=== PATIENT | female | born 1960 | race Caucasian/White ===

== ENCOUNTER 2017-06-21 19:18 | Inpatient (IN) | payer MEDICARE ==
[~2017-06-21] VITALS: Ht 162.6 cm; Wt 90.7 kg
--- NOTE | ~2017-06-21 | EKG ---
PATIENT: ELYSE VIEIRA UNIT #: [id number] Ventricular Rate: 71 BPM Atrial Rate: 71 BPM P-R Interval: 172 ms QRS Duration: 90 ms Q-T Interval: 418 ms QTC Calculation(Bezet): 454 ms P Berlin: 46 degrees Calculated R Berlin: 7 degrees Calculated T Berlin: 43 degrees Diagnosis Line: Normal sinus rhythm Diagnosis Line: Normal ECG Diagnosis Line: When compared with ECG of 03-NOV-2016 05:27, Diagnosis Line: No significant change was found Diagnosis Line: Confirmed by NATE WELLS MD ([id number]) on Diagnosis Line: 06/23/2017 10:49:28 PM INTERPRETING MD: SAE
--- NOTE | ~2017-06-21 | CR157 ---
[facility] A Service of [facility] RADIOLOGY TEXT RESULTS PATIENT: ELYSE VIEIRA LOCATION: [facility] : 58 UNIT #: [id number] AGE: [address]: Ann Kurtz MD SEX: F ORDER DR: [id number] [facility] [address]. [place], [place] [address] [id number] I MR#: [id number] Acc #: [id number] NAME: ELYSE VIEIRA. : 1960 SEX: F STUDY DATE/TIME: 06/21/2017 19:55 UNIT: [facility] ROOM: 219 STUDY DESCRIPTION: CR Humerus Min 2 View Rt Attending Physician: Ann Kurtz M.D. Ordering Physician: Jarrett Leon D.O. Primary Care Physician: Maria Antonia Vargas M.D. MEDICAL IMAGING REPORT This report is preliminary unless electronic signature is present EXAM Humerus right, two views , HISTORY Right arm and shoulder pain with movement. Patient fell today. COMMENT Two views of the right humerus are reviewed. There is a spiral fracture of the mid shaft of the right humerus with angulation and displacements. There is apparently apex dorsal angulation and at least 2 to 3 cm displacement. There is soft tissue swelling. Please correlate for clinical evidence of neurovascular injury. IMPRESSION Spiral fracture midshaft of the right humerus with angulation and displacement. Please correlate for any clinical concern for neurovascular injury. Dictated by... Leida Duvall M.D. THIS IS AN ELECTRONICALLY VERIFIED REPORT Leida Duvall M.D. at 06/22/2017 2:12 PM SANDHYA/jae TD: 06/22/2017 08:34 JOB #: [id number] MEDICAL IMAGING REPORT [facility] A Service [facility] RADIOLOGY TEXT RESULTS PATIENT: ELYSE VIEIRA LOCATION: [facility] : 58 UNIT #: [id number] AGE: [address]: Ann Kurtz MD SEX: F ORDER DR: Page 1 of 1 COPY
--- NOTE | ~2017-06-21 | CT71 ---
[facility] A Service of [facility] RADIOLOGY TEXT RESULTS PATIENT: ELYSE VIEIRA LOCATION: [facility] - : 58 UNIT #: [id number] AGE: [address]: Ann Kurtz MD SEX: F ORDER DR: [id number] [facility] [address] [place] [facility]. [place], [place] [address] [id number] I MR#: [id number] Acc #: [id number] NAME: ELYSE VIEIRA. : 1960 SEX: F STUDY DATE/TIME: 06/21/2017 20:39 UNIT: C2A ROOM: 219 STUDY DESCRIPTION: CT Head Wo Contrast Attending Physician: Ann Kurtz M.D. Ordering Physician: Jarrett Leon D.O. Primary Care Physician: Maria Antonia Vargas M.D. MEDICAL IMAGING REPORT This report is preliminary unless electronic signature is present EXAM Head CT without HISTORY Trauma, fell today, hit head, forehead pain, neck pain. History of hypertension, stroke, COPD, diabetes and seizures. COMMENT Routine noncontrast head CT is reviewed. Comparison is from 11/03/2016. This CT examination was performed with one or more of the following radiation dose reduction techniques: automatic exposure control, adjustment of mA and/or kV according to patient size, and iterative reconstruction. There is no displaced calvarial fracture. Partly seen is a mucous retention cyst or polyp in the left maxillary sinus. The mastoid air cells are clear. Incidental osteoma in the frontal sinuses. Vascular calcifications at the base of the brain. There is no evidence for acute intracranial hemorrhage or extraaxial fluid collection. There is mild generalized atrophy and there is mild white matter low-attenuation in the periventricular white matter which is nonspecific but likely due to small vessel disease. Basilar cisterns are patent. There is no intracranial mass effect. No acute cortical infarct is suspected but if there is clinical concern for acute CVA followup imaging is recommended preferably with an MRI. IMPRESSION 1. No evidence for acute intracranial injury. 2. Mild probable sequelae of small vessel disease. Dictated by... [facility] A Service of [facility] RADIOLOGY TEXT RESULTS PATIENT: ELYSE VIEIRA LOCATION: [facility] [address] : 58 UNIT #: [id number] AGE: [address]: Ann Kurtz MD SEX: F ORDER DR: Leida Duvall M.D. THIS IS AN ELECTRONICALLY VERIFIED REPORT Leida Duvall M.D. at 06/22/2017 2:13 PM SANDHYA/kylah TD: 06/22/2017 08:48 JOB #: [id number] MEDICAL IMAGING REPORT Page 1 of 1 COPY
--- NOTE | ~2017-06-21 | DS ---
Unit #: [id number] #: [id number] Patient: JACKIE VIEIRA [id number] [address] [address] [id number] I MR#: [id number] NAME: JACKIE VIEIRA. ROOM: 453 Age: 57 Sex: F Admission Date: 06/21/2017 : 1960 Discharge Date: 06/28/2017 Attending Physician: Ann Kurtz M.D. Primary Care Physician: Maria Antonia Vargas M.D. DISCHARGE SUMMARY LAB WORKUP ON DISCHARGE WBC 5.1, hemoglobin 8.3, hematocrit 24.1 and platelet count of 135, sodium 131, potassium 3.7, chloride 95, BUN 19, creatinine 4.0, calcium 8.2, glucose 114. SIGNIFICANT RADIOLOGICAL STUDIES DONE DURING HOSPITALIZATION WERE: 1. CT scan of the head without contrast on admission which shows no evidence of acute intracranial injury. 2. Humerus x-ray shows fracture midshaft of the right humerus. 3. CT scan of the cervical spine shows no acute finding. Mild degenerative facet arthropathy in the upper and lower cervical spine. 4. Right knee x-ray shows no acute finding. CONSULTATION DURING HOSPITALIZATION 1. Dr. Samy Boateng from [facility]al Services. 2. Dr. Simon from Orthopedic Surgery. PROCEDURE PERFORMED DURING HOSPITALIZATION Right humeral intramedullary nail placement. This procedure was done by Dr. Gore on 06/24/17. DISCHARGE DIAGNOSES 1. Right shoulder fracture, status post surgery. 2. End stage renal disease, on hemodialysis. 3. Anemia. Please note - patient received one unit of packed RBC transfusion yesterday. 4. History of coronary artery disease with history of cardiomyopathy. 5. Hypertension. 6. Seizure disorder. 7. Diabetes mellitus type 2. 8. Hypothyroidism. 9. Obstructive sleep apnea. 10. Morbid obesity. 11. Chronic pain. DISCHARGE MEDICATIONS 1. Folic acid/vitamin B complex tablet, one tablet daily. 2. Nitroglycerin 0.4 mg sublingual p.r.n. for chest pain. 3. Imdur ER 60 mg daily. 4. Synthroid 300 mcg daily. 5. Omeprazole 20 mg daily. 6. Plavix 75 mg daily. 7. Renvela 800 mg t.i.d. with meals. 8. Hanna 10/325, one tablet q.4 p.r.n. for pain. Unit #: [id number] #: [id number] Patient: JACKIE VIEIRA 9. Aspirin 81 mg daily. 10. Levemir 15 mg q. a.m. 11. Humalog 5 units subcu t.i.d. 12. Pravastatin 80 mg daily. 13. Please note - patient was on Lasix 80 mg b.i.d. at home. We are going to leave that decision to Dr. Boateng, lathmaker, as patient has not been receiving it in the hospital. 14. Senokot, one tablet twice a day. 15. Colace 100 mg twice a day. 16. Bisacodyl 5 mg b.i.d. p.r.n. for constipation. 17. Zofran 4 mg q.6 p.r.n. for nausea. 18. Zoloft 100 mg twice a day. 19. Remeron 50 mg q. h.s. 20. Keppra 750 mg b.i.d. 21. Vimpat 100 mg b.i.d. 22. Neurontin 300 mg t.i.d. 23. Advair 500/50, one Diskus inhaler b.i.d. 24. Ventolin inhaler, two puffs q.6 p.r.n. HOSPITAL COURSE Ms. Jackie Vieira is a 57-year-old female who lives with her elderly parents, came because she had a fall outside her house and had severe pain in the right shoulder. She also had some bruises on the knee and lower leg. Patient was brought to ER, was found to have right humerus fracture. Dr. Simon was consulted. Patient had surgery done and is doing much better at this time. Patient will be transferred to rehab for continuation of rehab. Patient was also consulted by Dr. Boateng and hemodialysis was continued during hospitalization. That needs to be continued as outpatient. Patient also received one unit of packed RBC transfusion on 06/27/17. EXAMINATION ON DISCHARGE Blood pressure is 134/91, respiratory rate 20, pulse is 76, temperature 98.5. Oxygen saturation is 95%. CHEST has fair air entry. CVS is regular rhythm. ABDOMEN is soft. Right shoulder dressing is present. DISCHARGE INSTRUCTIONS 1. Patient is being discharged to rehab facility today. 2. Medications as per Med Rec. 3. Continue hemodialysis per renal. 4. CBC and BMP to be done in two days. 5. DC gene postop day 14. 6. Change dressing daily. 7. Non-weight bearing right upper extremity. 8. Follow up with Dr. Simon in two weeks, [phone]. 9. Plan of care discussed with patient. Dictated by... Ann Kurtz M.D. DOMINIC/hilton TD: 06/28/2017 11:22 JOB #: [id number] Unit #: [id number] #: [id number] Patient: JACKIE VIEIRA DISCHARGE SUMMARY Page 1 of 1 X Ann Kurtz MD X DISCHARGE SUMMARY
--- NOTE | ~2017-06-21 | CO ---
Unit #: [id number] #: [id number] Patient: ELYSE VIEIRA [id number] [facility] [address]. [place], [place] [address] [id number] I MR#: [id number] NAME: ELYSE VIEIRA. ROOM: 219 Age: 57 Sex: F Admission Date: 06/21/2017 : 1960 Attending Physician: Ann Kurtz M.D. Primary Care Physician: Maria Antonia Vargas M.D. Consultation Date: 06/22/2017 CONSULTATION REPORT ADMITTING PHYSICIAN Dr. Meredith CONSULT PHYSICIAN Dr. Wills REASON FOR CONSULTATION Right mid shaft humerus fracture displaced. HISTORY OF PRESENT ILLNESS The patient is a 57-year-old female who I was asked to see in consultation by Dr. Meredith for a right humerus fracture. Patient is a very poor historian because of pain medications. Best I can tell, yesterday she was out in some type of garbage bin when she stumbled and fell. The patient immediately developed pain in her right upper extremity. The patient reports the pain is a 10 on a scale of 1 to 10. She denied any loss of consciousness or chest pain. Patient denies any numbness or tingling in her right upper extremity. She also denied any shortness of air. She presented to [place] with acute pain in her right upper extremity. X-rays demonstrated mid shaft humerus fracture of her right humerus. PAST MEDICAL HISTORY 1. History of coronary artery disease. 2. Takotsubo cardiomyopathy. 3. End stage renal disease, on dialysis. 4. Hypertension. 5. Hyperlipidemia. 6. COPD. 7. TREMAYNE. 8. Diabetes type 2. 9. Hypothyroidism. 10. Seizure disorder. 11. Chronic pain syndrome. 12. Chronic anemia. PAST SURGICAL HISTORY 1. Right ankle fracture at [facility]. 2. Cholecystectomy. 3. Salivary gland removal. 4. Hemorrhoidectomy. 5. Pilonidal cyst removal, left arm. 6. Fissure. 7. Colonoscopy. 8. PCI and drug-eluting stent. Unit #: [id number] #: [id number] Patient: ELYSE VIEIRA 9. Multiple EGDs and colonoscopies. SOCIAL HISTORY The patient lives with her parents best I can tell from medical records. Denies any tobacco or alcohol use. FAMILY HISTORY Father with COPD, colon cancer, diabetes. Mother with anemia. Patient's siblings have depression, COPD. HOME MEDICATIONS 1. Advair, one inhalation twice a day. 2. Keppra 750 mg twice a day. 3. Lasix 80 mg twice a day. 4. Levemir 15 units every evening. 5. Omeprazole 20 mg daily. 6. Plavix 75 mg daily. 7. Pravastatin 80 mg at bedtime. 8. Ventolin, two puffs every six hours. 9. Zoloft 100 mg twice a day. 10. Remeron 15 mg at bedtime. 11. Vimpat 100 mg twice a day. 12. Imdur 60 mg in the morning. 13. Humalog 5 units subcu three times a day with meals. 14. Colace 100 mg twice a day. 15. Synthroid 300 mcg every morning. 16. Aspirin 81 mg daily. 17. Percocet 10/325 q.6 hours p.r.n. pain. 18. Nitrostat sublingual p.r.n. 19. Renal-Doris, one tablet daily. 20. Zofran 4 mg every four hours. 21. Neurontin 300 mg three times a day. REVIEW OF SYSTEMS Unable to obtain because of pain medication. She does complain of a lot of pain in her right upper extremity. PHYSICAL EXAMINATION GENERAL: She is well developed, well nourished in no acute distress. She is very drowsy. VITAL SIGNS: Temperature is 97.6, blood pressure 149/62, heart rate 71 and regular, respirations 20. HEENT: Normocephalic, atraumatic. PERRLA. NECK: Supple. No thyromegaly. LUNGS: Clear to auscultation. No accessory muscle use. Equal expansion bilaterally. CARDIOVASCULAR: S1, S2. ABDOMEN: Soft, nontender, nondistended. Positive bowel sounds. EXTREMITIES: Edema in bilateral lower extremities. 2+ pulses. Right upper extremity with a splint. I was able to palpate brachial and radial pulses. There was a lot of bruising in the right upper extremity. She was able to move her fingers and her thumb. She had good sensation to both dull and sharp. NEUROLOGICAL: She is very drowsy today. DIAGNOSTIC STUDIES IMAGING: X-rays demonstrate a right mid shaft spiral fracture. Unit #: [id number] #: [id number] Patient: ELYSE VIEIRA LABORATORY: Sodium is 132, potassium is 5.1, chloride 93, CO2 25, BUN 35, creatinine 8.1, glucose of 169, INR 1.0, WBC 6.0, hemoglobin 9.0. ASSESSMENT Right mid shaft spiral humerus fracture. PLAN Will discuss with Dr. Gore, Dr. Simon. Make further recommendations after we figure out who would be the appropriate one to repair this. Dictated by... Devan Brumfield P.A.-C- for Brandon Botello/hilton TD: 06/22/2017 09:26 JOB #: [id number] CONSULTATION REPORT Page 1 of 1 X X CONSULTATION REPORT
--- NOTE | ~2017-06-21 | CR157 ---
[facility] A Service of [facility] RADIOLOGY TEXT RESULTS PATIENT: ELYSE VIEIRA LOCATION: [facility] 453-01 : 58 UNIT #: [id number] AGE: [address]: Ann Kurtz MD SEX: F ORDER DR: [id number] [facility] [address]. [place], [place] [address] [id number] I MR#: [id number] Acc #: [id number] NAME: ELYSE VIEIRA. : 1960 SEX: F STUDY DATE/TIME: 06/24/2017 14:36 UNIT: [facility] ROOM: [facility] STUDY DESCRIPTION: CR Humerus Min 2 View Rt Attending Physician: Ann Kurtz M.D. Ordering Physician: Jimmy Gore M.D. Primary Care Physician: Maria Antonia Vargas M.D. MEDICAL IMAGING REPORT This report is preliminary unless electronic signature is present EXAM Right humerus intraoperative spot films, 4 views. HISTORY Internal fixation of humerus fracture. Fluoroscopy time: 1 minute 7 seconds. FINDINGS Four fluoroscopic intraoperative spot films of the right humerus demonstrate locking intramedullary krissy fixation extending from the humeral head to the distal humeral metaphysis across oblique fracture of the mid to proximal humeral shaft, with close to 1 cm separation of the fracture fragments. Dictated by... Adam Dee M.D. THIS IS AN ELECTRONICALLY VERIFIED REPORT Adam Dee M.D. at 06/25/2017 4:05 PM SYED/sherly TD: 06/24/2017 23:24 JOB #: [id number] MEDICAL IMAGING REPORT Page 1 of 1 COPY
--- NOTE | ~2017-06-21 | CO ---
Unit #: [id number] #: [id number] Patient: ELYSE VIEIRA [id number] [address] [place], [place] [address] [id number] I MR#: [id number] NAME: ELYSE VIEIRA ROOM: 453 Age: 57 Sex: F Admission Date: 06/21/2017 : 1960 Attending Physician: Ann Kurtz M.D. Primary Care Physician: Maria Antonia Vargas M.D. CONSULTATION REPORT REASON FOR CONSULT Preoperative clearance. HISTORY OF PRESENT ILLNESS This is a 57-year-old white female, known to Dr. Li, with a past medical history of coronary artery disease, status post PCI and stent in the first diagonal of the LAD in 06/2015 after a non-ST elevation myocardial infarction. She also was documented to have takotsubo cardiomyopathy at that time with an ejection fraction of 10% to 15%. She had a followup echocardiogram in 11/2015 and her EF improved to 50% to 55%. Additional past medical history includes end-stage renal disease, on hemodialysis; hypertension; diabetes; COPD; seizures; and chronic pain syndrome. She was seen by our group in 09/2016 in the hospital for chest pain. Cardiac markers were negative. She underwent a GI evaluation and was found to have Fabiola esophagitis. She was discharged on Diflucan. She presented back to the hospital with complaints of a fall. She states that she was taking out the recycling bin when she tripped and fell. She hit her head, her right knee and right arm. She went to the emergency department and the imaging revealed a right humerus fracture. CT of the head was normal. Right knee x-ray was normal. She was admitted and Orthopedic Surgery was consulted and Cardiology was consulted for preoperative clearance. The patient denies chest pain. There are no reports of worsening shortness of breath, PND or orthopnea. She denies lower extremity edema. Prior to the fall, there was no dizziness or precipitating symptoms. She did not lose consciousness. Vital signs are stable. EKG reveals no acute findings. PAST MEDICAL HISTORY 1. Coronary artery disease; non-ST elevation myocardial infarction; status post cardiac catheterization on 06/21/2015, which revealed left main normal; diffuse 60% to 70% stenosis in the LAD near the apex, beyond which the vessel was small in caliber and not bypassable, septal armature winder helper repair was normal, first diagonal of LAD 99%, immediately beyond its origin with distal vessel normal, mid segment of the left circumflex has haziness suggesting cholesterol plaques, but no more than 30% stenosis, marginal branch is normal, mid right coronary artery 50% to 60%, distal right coronary artery 50% to 60%, PDA and PLV normal, severe hypokinesis of the anterior and inferior apical wall, pattern suggestive of stress cardiomyopathy or "takotsubo cardiomyopathy," status post PCI and drug-eluting stent to the proximal first diagonal of the LAD, left ejection fraction 10% to 15%. 2. 2D echocardiogram in 11/2015 revealed an ejection fraction of 50% to 55%. Trace tricuspid regurgitation. Moderate mitral annular Unit #: [id number] #: [id number] Patient: ELYSE VIEIRA. 3. Hypertension. 4. Hyperlipidemia. 5. Diabetes mellitus, type 2. 6. End-stage renal disease, on hemodialysis. 7. COPD. 8. Obstructive sleep apnea. 9. Hypothyroidism. 10. History of seizure disorder. 11. History of pulmonary embolism. 12. Chronic pain syndrome. 13. Chronic anemia. 14. Rheumatoid arthritis. 15. Obesity. 16. Right ankle fracture and left lower leg fracture in 08/2016. 17. Nonsmoker. PAST SURGICAL HISTORY 1. Cardiac catheterization as noted above. 2. Right ankle surgery at [facility]. 3. Cholecystectomy. 4. Salivary gland removal. 5. Hemorrhoidectomy. 6. Pilonidal cyst removal. 7. Fistula placement, left arm. 8. Colonoscopy in 2014 with a large ulcer at the junction of the cecum and descending colon. Multiple polyps. Diffuse gastritis and 2 polyps removed. An EGD on 10/06/2016 with 2 large ulcers and Fabiola esophagitis and mild gastritis. HOME MEDICATIONS Advair Diskus inhaler b.i.d., Keppra 750 mg p.o. b.i.d., Lasix 80 mg p.o. b.i.d., Levemir 50 units subcu, Omeprazole 20 mg p.o. daily, Plavix 75 mg p.o. daily, pravastatin 80 mg p.o. at bedtime, Ventolin inhaler q.6 hours p.r.n., Zoloft 100 mg p.o. b.i.d., Remeron 15 mg p.o. q.h.s., Vimpat 100 mg p.o. b.i.d., Imdur 60 mg p.o. daily, Humalog 5 units subcu t.i.d. with meals, Colace 100 mg p.o. b.i.d., Synthroid 300 mcg p.o. in the morning, aspirin 81 mg p.o. daily, Percocet 10/325 mg one tablet p.o. q.6 hours p.r.n., Mycostatin p.r.n., folic acid 1 tablet p.o. daily, Zofran 4 mg p.o. q.6 hours p.r.n., Neurontin 300 mg p.o. t.i.d. ALLERGIES No known drug allergies. SOCIAL HISTORY The patient is a nonsmoker. There are no reports of alcohol or illicit drug use. FAMILY HISTORY Noncontributory. REVIEW OF SYSTEMS A 10-point review of systems is negative except for details noted above in HPI. PHYSICAL EXAMINATION VITAL SIGNS: Temperature 98.9, pulse 89, blood pressure of 149/48. CONSTITUTIONAL: This is a 57-year-old white female, in no acute distress. Unit #: [id number] #: [id number] Patient: ELYSE VIEIRA SKIN: Warm and dry. NECK: Supple. No jugular vein distention. No hepatojugular reflux. Normal carotid upstrokes. No carotid bruits auscultated. HEART: S1 and S2. Regular rate and rhythm. No murmurs, rubs, or gallops. LUNGS: Bilateral breath sounds have good air entry throughout all lung melchor. Respirations are even and nonlabored. No rales, rhonchi, or wheezes. ABDOMEN: Soft, nontender, and nondistended. Positive bowel sounds auscultated x4. No ascites noted. EXTREMITIES: Bilateral lower extremities have no pretibial or pitting edema. DP and PT pulses are 2+. Capillary refill is less than 2 seconds. Right arm is in a sling. DIAGNOSTIC STUDIES LABORATORY RESULTS: White blood cell count 5.9, hemoglobin 8.6, hematocrit 24.5, platelets 120. Sodium 133, potassium 4.2, chloride 100, CO2 of 23, BUN 23, creatinine 4.8, glucose 175. AST 15, ALT 12, alkaline phos 117. Albumin 3.3 with total protein 6.9. INR 1.0, PT 10.4. IMAGING STUDIES: X-ray of the right humerus reveals a spiral fracture of mid shaft of right humerus with angulation and displacement. CT of cervical spine without contrast revealed mild degenerative facet arthropathy in the upper and lower cervical spine. X-ray of the right shoulder revealed no fracture at the midshaft of right humerus. X-ray of the right knee, no acute findings. CT of the head without contrast, no evidence of acute intracranial injury. Mild probable small vessel disease. Cardiovascular; EKG, normal sinus rhythm. No acute ST or T wave changes. QTc, 454 milliseconds. IMPRESSION 1. Status post fall with spiral fracture of the right humerus. 2. Coronary artery disease with history of non-ST elevation myocardial infarction, status post percutaneous coronary intervention and drug-eluting stent in the first diagonal of the left anterior descending on 06/21/2015. 3. History of takotsubo cardiomyopathy with an ejection fraction of 10% to 15% in 06/2015. Repeat 2D echocardiogram with an improved ejection fraction of 50% to 55% in 2016. 4. End-stage renal disease, on hemodialysis. 5. Hypertension. 6. Hyperlipidemia. 7. Diabetes mellitus, type 2. 8. Chronic obstructive pulmonary disease. 9. Obstructive sleep apnea. 10. Hypothyroidism. 11. History of seizure disorder. 12. History of pulmonary embolism. 13. Chronic pain syndrome. 14. Obesity. 15. Nonsmoker. PLAN 1. The patient presented to the hospital after the fall. She is scheduled to undergo surgery due to right humerus fracture. 2. Cardiology was consulted for preoperative clearance. 3. There are no complaints of chest pain or evidence of congestive heart Unit #: [id number] #: [id number] Patient: ELYSE VIEIRA failure on exam. 4. The patient is cleared to undergo surgery at acceptable risk. She will be continued on statin, nitrates and dual antiplatelet therapy postoperatively. Will follow volume status as well. Dictated by... Lianet Chavira APRN for Eric Li M.D. TR/patrick TD: 06/29/2017 03:10 JOB #: [id number] CONSULTATION REPORT Page 1 of 1 X X CONSULTATION REPORT
--- NOTE | ~2017-06-21 | A ---
[facility] Nutrition Therapy DATE: 06/22/17 Patient: ELYSE VIEIRA Physician: JAE Address: [address] [place] [address] Room/Bed: [address] [place] [address], Zip: [place] [address] Admit Date: 06/21/17 Date of : 58 Height: 5 4 Weight: 200 90.71 NUTRITIONAL ASSESSMENT: REASON: ONE NUTRITION RISK PT RE: PRESSURE ULCER/NON-HEALING WOUND PT IS 57 Y.O. FEMALE ADMITTED FOR FALL, FRACTURE PMH: NO RECENT H&P IN [facility] SINCE OCT 2016. PER CHART/PAST NOTES: ESRD ON HD, CAD, HTN, HLD, T2DM, TREMAYNE, SEIZURE DISORDER, COPD, TIA, HYPOTHYROIDISM, DIABETIC NEUROPATHY Anthropometrics: 5'4", WT: 200# (PER PT) (90.9 KG), BMI: 34.3 Labs: GLU: 169, BUN: 35, CREAT: 8.1, NA+:132, GFR: 4.9 Meds: LIPITOR, LEVEMIR, NEPHROCAPS, PROTONIX, COLACE, FUROSEMIDE, NOVOLOG, SYNTHROID, ZOFRAN, NACL I/O & Bowel function: 0/- Skin Integrity: ABRASION (R) KNEE; OPEN WOUND (R) ANKLE Estimated Nutrition Needs: INCREASED PROTEIN NEEDS 2' PMH (HD) AND WOUND NOTED Assessment: CHART REVIEWED AND EVENTS NOTED. PT SEEN FOR NUTRITION RISK PT RE: PRESSURE ULCER/NON-HEALING WOUND. PT REPORTS "PRETTY DECENT" APPETITE BUT ADDS HER APPETITE "GOES UP AND DOWN". PT EATING BREAKFAST AT TIME OF VISIT-MUFFIN AND FRUIT. PT DENIES ANY RECENT WEIGHT LOSS (PER [facility], PT WEIGHED ~191-223# BACK IN OCT 2016). THIS RD ENCOURAGED ADEQUATE PROTEIN INTAKE DAILY TO PROMOTE SKIN HEALING AND HD NEEDS, PT AGREED TO NEPRO SHAKE W/LUNCH DAILY. PT REPORTED NO DIET QUESTIONS AT THIS TIME. RD TO FOLLOW/REMAIN AVAILABLE. Dx: INCREASED PROTEIN NEEDS R/T SKIN BREAKDOWN, PMH AEB PT ON HD, OPEN WOUND (R) ANKLE NOTED. Intervention: 1. CC DIET 2. NEPRO SHAKE DAILY W/LUNCH MEAL Monitoring, Evaluation and Goals: 1. ORAL INTAKE; CONSUME/TOLERATE >50% OF MEALS AND SUPPLEMENTS 2. WEIGHTS; PROMOTE GRADUAL WEIGHT LOSS TOWARDS A HEALTHY BMI 3. SKIN; PROMOTE WOUND HEALING 4. LABS; WNL: BUN, CREAT, GLU, LYTES MONITOR: [facility] Nutrition Therapy DATE: 06/22/17 Patient: ELYSE VIEIRA Physician: JAE Address: [address] [place] [address] Room/Bed: [address] [place] [address], Zip: [place] [address] Admit Date: 06/21/17 Date of : 58 Height: 5 4 Weight: 200 90.71 -PO INTAKE/APPETITE -WEIGHTS -SUPPLEMENT INTAKE Recommendations: 1. PLEASE ORDER BUTTER PECAN NEPRO SHAKE W/LUNCH MEAL DAILY 2. CONSIDER ADDING MVI W/MINERAL DAILY TO PT'S CURRENT MEDICATION REGIMEN TO PROMOTE WOUND HEALING 3. RECOMMEND TO ADD RENAL +HH TO CURRENT DIET ORDER 2' PT ON HD 4. APPRECIATE FAMILY AND STAFF TO ENCOURAGE ADEQUATE PROTEIN INTAKE RD WILL F/U PER PROTOCOL PT IS MILDLY COMPROMISED Respectfully, ADRIANA ASKEW MS, RD, LD Food and Nutritional Services [facility] cc: client file
--- NOTE | ~2017-06-21 | HP ---
Unit #: [id number] #: [id number] Patient: ELYSE VIEIRA [id number] [address] [address] [id number] I MR#: [id number] NAME: ELYSE VIEIRA. ROOM: 219 Age: 57 Sex: F Admission Date: 06/21/2017 : 1960 Attending Physician: Ann Kurtz M.D. Primary Care Physician: Maria Antonia Vargas M.D. HISTORY AND PHYSICAL CHIEF COMPLAINT History of fall. HISTORY OF PRESENT ILLNESS 57-year-old female with multiple medical problems, lives with her mother and father. Was picking up her recycle bin outside back on the porch, when she fell down. She hurt her right arm. Her mother came, called EMS and the patient was brought to the emergency room. There was some confusion according to the ER notes. The patient had hit her head, right knee and right arm. The patient was seen in the ER and was found to have right humerus fracture. CT scan of the head was done, which was normal. Right knee x-ray was normal. The patient received IV morphine in the ER and that made her saturations go down to 88%. The patient was placed on 2 liters oxygen. Her saturation got better. Splint was placed on right upper arm and the patient was admitted for pain management and ortho consult. The patient did not have any syncopal episode. She does not complain of chest pain or shortness of breath or abdominal pain or nausea or vomiting. She does not have any other significant symptoms beside chronic pain. PAST MEDICAL HISTORY Patient does have significant past medical history. 1. Coronary artery disease. 2. Cardiomyopathy. 3. Endstage renal disease on hemodialysis. 4. Hyperlipidemia. 5. Chronic obstructive pulmonary disease. 6. Obstructive sleep apnea. 7. Diabetes mellitus type 2. 8. Hypertension. 9. Seizure disorder. 10. Hypothyroidism. 11. Chronic anemia. 12. Chronic pain syndrome. PAST SURGICAL HISTORY Multiple surgeries in the past, including 1. Cholecystectomy. 2. Saliva gland removal. 3. Hemorrhoidectomy. 4. Pilonidal cyst removal. 5. Left arm fistula. 6. Colonoscopy. 7. PCI and drug-eluting stents. Unit #: [id number] #: [id number] Patient: ELYSE VIEIRA 8. Multiple EEGs and colonoscopy. 9. Right ankle fracture in 08/2016. SOCIAL HISTORY The patient lives with her parents. Multiple admissions. No history of smoking, alcohol or drug abuse. FAMILY HISTORY COPD. The patient's father has colon cancer and diabetes. Mother has anemia. HOME MEDICATIONS 1. Advair Diskus inhaler b.i.d. 2. Keppra 750 mg b.i.d. 3. Lasix 80 mg b.i.d. 4. Levemir 50 units subcutaneous. 5. Omeprazole 20 mg daily. 6. Plavix 75 mg daily. 7. Pravastatin 80 mg at nighttime. 8. Ventolin inhaler q.6 h. p.r.n. 9. Zoloft 100 mg b.i.d. 10. Remeron 15 mg at bedtime. 11. Vimpat 100 mg b.i.d. 12. Imdur 60 mg daily. 13. Humalog 5 units subcutaneous t.i.d. with meals. 14. Colace 100 mg b.i.d. 15. Synthroid 300 mcg p.o. q.a.m. 16. Aspirin 81 mg daily. 17. Percocet 10/325 mg 1 tablet q.6 h. p.r.n. 18. Mycostatin p.r.n. basis. 19. Folic acid 1 tablet daily. 20. Zofran 4 mg q.6 h. p.r.n. 21. Neurontin 300 mg t.i.d. REVIEW OF SYSTEMS As per history of present illness. No history of fever, chills or rigors. No history of dizziness or syncopal episode. PHYSICAL EXAMINATION GENERAL: The patient is lying in bed. Does not seem to be in any respiratory distress. VITALS: She is on 2 liters oxygen and her saturation is 96%. Blood pressure 147/62, respiratory rate 20, pulse 71, temperature 97.6. HEENT: Head is normocephalic. Eye movements normal. NECK: Supple. CHEST: Fair air entry. Decreased at the bases. HEART: S1 and S2 positive. Regular rhythm. ABDOMEN: Obese. EXTREMITIES: Negative edema. Right upper extremity, the patient has a sling at this time. Pulses are palpable bilateral upper extremities. NEUROLOGIC: LUMBER MARKER, the patient is awake, alert and oriented times three. DIAGNOSTIC STUDIES IMAGING: Right knee x-ray done in the ER and shows no acute finding. Right shoulder x-ray shows fracture in the midshaft of the right humerus. Fracture is spiral, displaced and angulated. Unit #: [id number] #: [id number] Patient: ELYSE VIEIRA CT scan of the cervical spine was done, which shows no acute finding. CT scan of the head without contrast shows no evidence for acute intracranial injury. Mild probable sequelae of small vessel disease. LABORATORY: So far, white blood cell count 6.2, hemoglobin 9.2, hematocrit 26.3, platelet count 149. PT/INR 10.9 and 1.0. Sodium 132, potassium 5.1, chloride 93, BUN 35, creatinine 8.1. ASSESSMENT/PLAN The patient is being admitted to medical/surgical unit with 1. History of fall causing right humeral fracture. No syncopal episode. Most likely she tripped on her recycle bin. 2. Endstage renal disease on hemodialysis. 3. Cardiomyopathy with coronary artery disease. 4. Hypertension. 5. Seizure disorder. 6. Diabetes mellitus. 7. Chronic pain. 8. Hypothyroidism. 9. Obstructive sleep apnea. 10. Morbid obesity. PLAN Admit to medical/surgical. Dr. Gore has been consulted. Patient has been placed in a sling. She needs surgical procedure. Home medications have been reviewed and adjusted. Dr. Moser has been consulted for ongoing hemodialysis. Plan of care has been discussed with patient. Please refer to progress note for further orders. Dictated by Brandon Levy TD: 06/22/2017 09:32 JOB #: [id number] HISTORY AND PHYSICAL Page 1 of 1 X Ann Kurtz MD HISTORY AND PHYSICAL
--- NOTE | ~2017-06-21 | CR230 ---
[facility] A Service of [facility] RADIOLOGY TEXT RESULTS PATIENT: ELYSE VIEIRA LOCATION: C2A 219- : 58 UNIT #: [id number] AGE: [address]: Ann Kurtz MD SEX: F ORDER DR: [id number] [facility] [address] [facility]. [place], [place] [address] [id number] I MR#: [id number] Acc #: [id number] NAME: ELYSE VIEIRA. : 1960 SEX: F STUDY DATE/TIME: 06/21/2017 20:00 UNIT: [facility] ROOM: 219 STUDY DESCRIPTION: CR Shoulder Min 2 View Rt Attending Physician: Ann Kurtz M.D. Ordering Physician: Jarrett Leon D.O. Primary Care Physician: Maria Antonia Vargas M.D. MEDICAL IMAGING REPORT This report is preliminary unless electronic signature is present EXAM Shoulder right, two-view HISTORY Patient fell today with pain in the right arm and shoulder. Limited range of motion. COMMENT Three views of the right shoulder are reviewed. The humeral head is located. There is some mild degenerative change at the acromioclavicular joint. Partly seen is a spiral, displaced angulated fracture of the midshaft of the humerus. There is a component of nondisplaced fracture that extends into the proximal humeral shaft to the metaphysis level. No obvious intraarticular extension. IMPRESSION Humeral head is located. Partly included in the field of view is the patient's known fracture centered at the mid shaft of the right humerus. The fracture is spiral, displaced and angulated and there is a component of nondisplaced fracture line that extends into the proximal humeral fragment to the level of the metaphysis. Dictated by... Leida Duvall M.D. THIS IS AN ELECTRONICALLY VERIFIED REPORT Leida Duvall M.D. at 06/22/2017 2:12 PM Missy TD: 06/22/2017 08:36 JOB #: [id number] MEDICAL IMAGING REPORT [facility] A Service of [facility] RADIOLOGY TEXT RESULTS PATIENT: ELYSE VIEIRA LOCATION: [facility] 219-01 : 58 UNIT #: [id number] AGE: [address]: Ann Kurtz MD SEX: F ORDER DR: Page 1 of 1 COPY
--- NOTE | ~2017-06-21 | OR ---
Unit #: [id number] #: [id number] Patient: ELYSE VIEIRA [id number] [address] [place], [place] [address] [id number] I MR#: [id number] NAME: ELYSE VIEIRA. ROOM: [facility] Date of Procedure: 06/24/2017 Admission Date: 06/21/2017 Surgeon: Jimmy Gore M.D. : 1960 Attending Physician: Ann Kurtz M.D. Primary Care Physician: Maria Antonia Vargas M.D. OPERATIVE REPORT PREOPERATIVE DIAGNOSIS Right humeral midshaft fracture. POSTOPERATIVE DIAGNOSIS Right humeral midshaft fracture. PROCEDURE PERFORMED Right humeral intramedullary nail. TIMING ADJUSTER Jeffrey Hidalgo CFA. ANESTHESIA General endotracheal. COMPLICATIONS None. SPECIMENS None. DRAINS None. SURGICAL IMPLANTS [place] size 8 proximal locking humeral intramedullary nail. INDICATION FOR PROCEDURE Ms. Vieira is a 57-year-old female, who had fallen onto her right arm resulting in a displaced midshaft humerus fracture. The patient was noted to have significant pain and limited function. Options discussed with the patient including surgical versus conservative. The patient elected surgery to aid in mobility and decrease pain. Risks include but are not limited to, infection, bleeding, nerve injury, blood clots, risks associated with anesthesia, need for further surgery, and possibly . DESCRIPTION OF PROCEDURE On 06/24/2017, the patient was seen in the preoperative holding area, where her surgical site was marked. Preoperative antibiotics were received. H and P and consent updated. The patient was taken to the operating room and provided general anesthesia. She was then carefully moved into the beach chair position. All bony prominences were well Unit #: [id number] #: [id number] Patient: ELYSE VIEIRA padded. Head and neck kept in neutral position at all times. Right upper extremity was then prepped and draped in typical sterile fashion. Time-out was performed confirming the correct surgical site and procedure. A longitudinal incision was made directly lateral off the acromion. Deltoid muscle split in line with its fibers. Rotator cuff insertion site split in a longitudinal fashion for access to the greater tuberosity. Starting awl was placed on the tip of the humerus, greater trochanter, and inserted into the canal. A long ball-tipped guidewire was passed. 1 inch incision was made anterolaterally over the fracture site. Using manual manipulation, the fracture was reduced and the guidewire was passed. It was checked on both planes. Humerus length measured. Appropriate size nail was assembled on the back table. It was felt an 8 mm nail was appropriate. Sequential reaming up to 9.5 mm was performed. The long ball-tipped guidewire was exchanged for a smaller wire in standard fashion. The nail was then inserted down the humerus aiding in reduction of the fracture. Proximally, two unicortical screws were placed using the jig with counterincisions over the proximal humerus. These had excellent purchase. This secured the proximal segment. Distally, perfect circles technique was used. A single anterior to posterior screw was placed through the oblong hole locking the nail distally. This allowed for some dynamization of the fracture site to aid in healing. The screw was placed carefully in bicortical fashion. At this point, all instruments were removed. Final images were taken confirming appropriate reduction of fracture and placement of hardware. Wounds were thoroughly irrigated. Rotator cuff tissue and deltoid tissue repaired with 0 Vicryl suture followed by 2-0 Vicryl for subcutaneous tissues and gene for skin. Standard postoperative dressing was applied. Simple sling was placed. The patient was subsequently awakened from general anesthesia in stable condition and taken to PACU postoperatively. POSTOPERATIVE PLAN The patient will return to her hospital room. She will be on standard 24-hour antibiotic protocol. She will restart Lovenox. She will have SCDs. No complications were encountered during the surgical procedure. Dictated by... Jimmy Gore M.D. DUNIA/patrick TD: 06/24/2017 18:15 JOB #: [id number] OPERATIVE REPORT Page 1 of 1 X X PROCEDURE OPERATIVE NOTE
--- NOTE | ~2017-06-21 | CT52 ---
[facility] Service of [facility] RADIOLOGY TEXT RESULTS PATIENT: ELYSE VIEIRA LOCATION: [facility] : 58 UNIT #: [id number] AGE: [address]: Ann Kurtz MD SEX: F ORDER DR: [id number] [facility] [address] [facility] [place] [facility]. [place], [place] [address] [id number] I MR#: [id number] Acc #: [id number] NAME: ELYSE VIEIRA. : 1960 SEX: F STUDY DATE/TIME: 06/21/2017 19:38 UNIT: [facility] ROOM: 219 STUDY DESCRIPTION: CT Cervical Spine Wo Cont Attending Physician: Ann Kurtz M.D. Ordering Physician: Jarrett Leon D.O. Primary Care Physician: Maria Antonia Vargas M.D. MEDICAL IMAGING REPORT This report is preliminary unless electronic signature is present EXAM CT cervical spine without contrast HISTORY Neck pain today. Fell today and hit head. TECHNIQUE This CT exam was performed with one or more of the following radiation dose reduction techniques: automatic exposure control, adjustment of mA and/or kV according to patient size, and iterative reconstruction. FINDINGS CT cervical spine without contrast demonstrates satisfactory cervical alignment. No fracture, disc space narrowing or subluxation. No bony central canal stenosis or bony outlet foraminal stenosis. Mild degenerative facet arthropathy in the upper and lower cervical spine bilaterally. IMPRESSION 1. No acute findings. No fracture. 2. Mild degenerative facet arthropathy in the upper and lower cervical spine. Dictated by... Adam Dee M.D. THIS IS AN ELECTRONICALLY VERIFIED REPORT Adam Dee M.D. at 06/22/2017 11:45 PM SYED/nora TD: 06/22/2017 08:42 JOB #: [id number] [facility] A Service [facility] RADIOLOGY TEXT RESULTS PATIENT: ELYSE VIEIRA LOCATION: [facility] : 58 UNIT #: [id number] AGE: [address]: Ann Kurtz MD SEX: F ORDER DR: MEDICAL IMAGING REPORT Page 1 of 1 COPY
--- NOTE | ~2017-06-21 | CR173 ---
[facility] A Service of [facility] & [facility] RADIOLOGY TEXT RESULTS PATIENT: ELYSE VIEIRA LOCATION: A 219- : 58 UNIT #: [id number] AGE: [address]: Ann Kurtz MD SEX: F ORDER DR: [id number] [facility] [address] [facility]. [place], [place] [address] [id number] I MR#: [id number] Acc #: [id number] NAME: ELYSE VIEIRA. : 1960 SEX: F STUDY DATE/TIME: 06/21/2017 20:08 UNIT: [facility] ROOM: [facility] STUDY DESCRIPTION: CR Knee 3 Views Rt Attending Physician: Ann Kurtz M.D. Ordering Physician: Jarrett Leon D.O. Primary Care Physician: Maria Antonia Vargas M.D. MEDICAL IMAGING REPORT This report is preliminary unless electronic signature is present EXAM Right knee 3 views HISTORY Knee pain after a fall today. FINDINGS Three views of the right knee demonstrate generalized demineralization. Mild degenerative changes along the medial and lateral joint lines. No fracture or effusion. Minimal degenerative changes in the patellofemoral joint. Mild arterial calcifications. IMPRESSION No acute findings. Dictated by... Adam Dee M.D. THIS IS AN ELECTRONICALLY VERIFIED REPORT Adam Dee M.D. at 06/22/2017 11:44 PM SYED/nora TD: 06/22/2017 08:33 JOB #: [id number] MEDICAL IMAGING REPORT Page 1 of 1 COPY
--- NOTE | ~2017-06-21 | CO ---
Unit #: [id number] #: [id number] Patient: ELYSE VIEIRA [id number] [address] [address] [id number] I MR#: [id number] NAME: ELYSE VIEIRA. ROOM: 219 Age: 57 Sex: F Admission Date: 06/21/2017 : 1960 Attending Physician: Ann Kurtz M.D. Primary Care Physician: Maria Antonia Vargas M.D. Consultation Date: 06/22/2017 CONSULTATION REPORT NEPHROLOGY CONSULTATION REASON FOR CONSULT Dialysis needs. HISTORY OF PRESENT ILLNESS Ms. Vieira is a 57-year-old female well known to our service as she gets dialysis at [facility] on Tuesdays, and Saturdays. The patient was admitted after a fall at home resulting in a right humerus fracture. Orthopedics has been consulted for evaluation. We were asked to see to schedule her dialysis today. Patient is a little slow to answer questions on her pain medication but is appropriate. She denies any chest discomfort or shortness of breath at this time. No swelling. She has not been having any issues with her dialysis treatments. She says that her dialysis access has been working well. PAST MEDICAL HISTORY Significant for: 1. End stage renal disease. 2. COPD. 3. Obstructive sleep apnea. 4. Hypertension. 5. Diabetes. 6. Chronic pain issues. 7. Seizure disorder. 8. Cardiomyopathy. PAST SURGICAL HISTORY She has had a left arm shunt placed for dialysis. MEDICATIONS Current medications are as follows: 1. Protonix 40 mg a day. 2. Lovenox 40 mg subcu daily. 3. Neurontin 300 mg t.i.d. 4. Dulera inhaler. 5. Keppra 750 mg twice a day. 6. Lasix 80 mg twice a day. 7. Plavix 75 mg a day. 8. Lipitor 20 mg at bedtime. 9. Zoloft 100 mg twice a day. 10. Remeron 15 mg at bedtime. 11. Vimpat 100 mg twice a day. 12. Imdur 60 mg a day. Unit #: [id number] #: [id number] Patient: ELYSE VIEIRA 13. Colace twice a day. 14. Synthroid 150 mcg a day. 15. Baby aspirin daily. 16. Nephrocaps daily. 17. Levemir 15 units daily. 18. Sliding scale insulin with p.r.n. pain meds. ALLERGIES She has no known drug allergies. FAMILY HISTORY Noncontributory. SOCIAL HISTORY The patient lives with family. She is a former smoker. No alcohol or drug abuse. REVIEW OF SYSTEMS A complete 12-point review of systems was completed with the above findings. In addition, she denies any dizziness. She did hit her head during the fall. No nose bleed or sore throat or earache. No chest pain or palpitations. No cough or hemoptysis. No nausea, vomiting or diarrhea. No dysuria or hematuria. No rashes or itching. No flank pain, no night sweats or hot flashes. No intolerance to heat or cold. No gross bleeding issues. She says her weight has been relatively stable. Unless otherwise indicated, the review of systems was negative. PHYSICAL EXAMINATION VITAL SIGNS: The patient is afebrile. Pulse 71, respiratory rate 20, blood pressure 147/62. GENERAL: This is a 57-year-old female who is alert and in no acute distress. HEENT EXAM: Head is normocephalic. She does have a very slight bruise on her forehead. Eyes show pale conjunctivae with no scleral icterus. No nasal drainage or nose bleed. Oropharynx is moist with no thrush. NECK: No rigidity. HEART: Regular rate with murmur present. No gallop or rub appreciated. LUNGS: Clear with no wheezing or rhonchi. Breathing is nonlabored. ABDOMEN: Soft, nontender, nondistended. Bowel sounds are present. EXTREMITIES: No lower extremity cyanosis or pitting edema. SKIN: Dry. No rashes. VASCULAR EXAM: The patient has a left arm fistula in place with good bruit and thrill. NEUROLOGICAL EXAM: Patient has no gross deficits. LYMPHATIC EXAM: There is no neck cervical lymphadenopathy. PSYCHIATRIC EXAM: Mood appears normal. Affect is somewhat flat. DIAGNOSTIC STUDIES LABORATORY: Chemistry last night showed a sodium 132, potassium 5.1, chloride 93, bicarb 25, glucose 169, BUN 35, creatinine 8.1, INR 1, hemoglobin was just 9, platelet count normal. ASSESSMENT AND PLAN 1. End stage renal disease. Patient is due for dialysis today. We will go ahead and add her to the schedule. We will continue her dialysis on dialysis on Tuesdays, and Saturdays while here. 2. Anemia of chronic disease. We will order Epogen with dialysis with goal hemoglobin between 10 and 11. Unit #: [id number] #: [id number] Patient: ELYSE VIEIRA 3. Hypertension. Patient's blood pressure is reasonable on her current medications. Low salt diet will be stressed here in the hospital. 4. Diabetes, on insulin. 5. Right humerus fracture with Ortho seeing. 6. History of heart disease with cardiomyopathy. No signs of decompensated heart failure at this time. Would like to thank Dr. Kurtz for this consult and the opportunity to participate in the evaluation and care of Ms. Vieira. Dictated by... Samy Boateng Jr., MTaye. ANTHONY/hilton TD: 06/23/2017 08:22 JOB #: [id number] CONSULTATION REPORT Page 1 of 1 X Samy Boateng MD X CONSULTATION REPORT
[~2017-06-21 19:18] MED LIST: ACTOS PO; ADVAIR 500-501 EACH IH; ADVAIR 500-501 EACH INH; ADVAIR 5001 DISK W/1 IH; ADVAIR 5001 DISK W/1 INH; ADVAIR 5001 DISK W/2 IH; AL-MAG HYDROX-S30 M1 PO; ALBUTEROL SULF8.5 G1 IH; ALBUTEROL17 GM INH; ALDACTONE25 MG PO; ALTACE PO; AMBIEN PO; AMBIEN10 MG PO; AMLODIPINE BESY10 MG PO; AMOXICILLIN500 M1 PO; ASPIRIN EC81 M1 PO; ASPIRIN81 M2 PO; ASPIRIN81 MG PO; ATRAC-TAIN142 GM TOP; BACTROBAN22 GM TP; CALCIUM ACETAT667 M1 PO; CARAFATE1 G PO; CARVEDILOL12.5 MG PO; CARVEDILOL3.125 MG PO; CATAPRES-TTS-30.3 MG EXT; CATAPRES0.1 MG PO; CLONIDINE1 EAC1 TD; CLONIDINE1 EACH TD; CLOPIDOGREL BIS75 MG PO; CLOPIDOGREL75 MG PO; COLACE PO; COREG PO; COREG12.5 MG PO; COREG3.125 MG PO; COUMADIN PO; DIFLUCAN PO; EPOGEN10000 U/ML INJ; FENOFIBRATE145 M1 PO; FISH OIL 1,0001 CA2 PO; FUROSEMIDE80 MG PO; GABAPENTIN300 M2 PO; GABAPENTIN300 MG PO; GABAPENTIN400 MG PO; GABAPENTIN800 MG PO; HUMALOG100 U/M2; HUMALOG100 UNIT/1 SUBQ; HYDRALAZINE HC100 MG PO; HYDRALAZINE HCL50 MG PO; IMDUR-ER60 M1 PO; IMDUR-ER60 M2 PO; IRON325 ( 651 PO; KEPPRA500 M1 PO; KEPPRA500 M2 PO; KEPPRA750 MG PO; KLONOPIN1 MG PO; LANTUS100 UNITS/ SUBQ; LASIX80 MG PO; LEVEMIR SUBQ; LEVEMIR100 U/ML; LEVEMIR100 UNITS/ SUBQ; LEVOXYL200 MC1 PO; LIDODERM PATCH 5% TOP; LIDODERM30 EA TOP; LISINOPRIL20 MG PO; LISINOPRIL5 MG PO; LOVAZA1 G PO; LOVENOX100 MG/ML INJ; MILK OF MAGNESIA PO; MINOXIDIL2.5 MG PO; MONTELUKAST SOD10 MG PO; NEPHROCAPS1 CAP PO; NEURONTIN; NEURONTIN300 MG PO; NILSTAT TOP; NITROGLYCERIN0.4 MG SL; NITROSTAT0.4 MG SL; NORVASC PO; NORVASC10 MG PO; NOVOLOG100 U/ML SUBQ; NYSTATIN1 EAC1 TOP; NYSTATIN1000 GM PO; NYSTATIN5 ML PO; OMEPRAZOLE20 M1 PO; OMEPRAZOLE20 M2 PO; ONDANSETRON ODT4 MG PO; OPANA ER10 MG PO; OPANA10 MG PO; OXYMORPHONE HCL10 MG PO; PANTOPRAZOLE SO40 MG PO; PERCOCET 10/3251 TAB PO; PERCOCET 5-3251 TAB PO; PERCOCET 7.5-31 EACH PO; PERCOCET10 PO; PERCOCET5/325 PO; PHENERGAN25 M1 PO; PHOSLO667 MG PO; PLAVIX PO; PRAVACHOL PO; PRAVACHOL80 MG PO; PRAVASTATIN SOD40 MG PO; PRINIVIL10 MG PO; PRO AIR INHALER IN; PROAIR HFA8.5 GM IH; PROAIR HFA8.5 GM INH; PROTONIX PO; PT DOESN'T KNOW; REMERON SOLTAB15 MG PO; REMERON15 MG PO; RENAL-VITE TAB0.8 MG PO; RENAVIT TABLET0.8 MG PO; RENVELA800 MG PO; SERTRALINE HCL100 M1 PO; SERTRALINE HCL100 MG PO; STERAPRED5 MG/DOSE1 PO; SYNTHROID0.15 MG PO; SYNTHROID0.2 MG PO; SYNTHROID125 PO; SYNTHROID300 MCG PO; TIROSINT125 MCG PO; TRICOR145 MG PO; TYLENOL325 M1 PO; VIMPAT100 MG PO; VITAMIN D2000 UNIT PO; WARFARIN SODIU2.5 M1 PO; XANAX1 MG PO; ZANAFLEX PO; ZANAFLEX4 M1 PO; ZOFRAN ODT4 MG PO; ZOFRAN PO; ZOLOFT PO; ZOLOFT100 MG PO; [UNRECOGNIZED DRUG - CODE] TOP
[2017-06-21 20:05] LABS: BASOPHIL# 0.1 X10e3 (0-0.3); BASOPHIL% 0.9 % (0-2.5); EOSINOPHIL# 0.1 X10e3 (0-0.7); EOSINOPHIL% 1.5 % (0.0-7.0); HEMATOCRIT 26.3 % (35.0-45.0); LYMPHOCYTE# 1.3 X10e3 (1.0-3.5); LYMPHOCYTE% 22.3 % (17.0-45.0); MEAN CELL VOLUME 103.7 FL (83-96); MEAN CORPUSCULAR HEMOGLOBIN 35.5 PG (28-34); MEAN CORPUSCULAR HGB CONC 34.3 g/dL (30-36); MEAN PLATELET VOLUME 7.2 FL (6.5-11.5); MONOCYTE# 0.5 X10e3 (0-1.0); MONOCYTE% 7.6 % (3.0-12.0); NEUTROPHIL# 4.1 X10e3 (1.5-7.1); NEUTROPHIL% 67.7 % (40-75); PLATELET COUNT 149 X10e3 (140-420); RED BLOOD COUNT 2.54 X10e (3.90-5.30); RED CELL DISTRIBUTION WIDTH 17.3 % (11.0-15.5)
[2017-06-21 20:15] LABS: DIFF IND NO
[2017-06-21 20:19] LABS: PROTHROMBIN TIME (PATIENT) 10.9 SECONDS (10.0-11.7)
[2017-06-21 20:30] LABS: BUN/CREATININE RATIO 4.32; CALCIUM SERUM 8.6 mg/dL (8.4-10.2); CREATININE SERUM 8.1 mg/dL (0.6-1.4); GLOM FILT RATE Estimated 4.9 mL/min (>60); POTASSIUM 5.1 mmol/L (3.5-5.1)
[2017-06-22] MEDS ORDERED: RENVELA800 MG PO (12:37)
[2017-06-24 08:49] LABS: ALBUMIN SERUM 3.3 g/dL (3.5-5.0); BILIRUBIN,TOTAL 0.4 mg/dL (0.2-2.0); BUN/CREATININE RATIO 4.79; CALCIUM SERUM 8.6 mg/dL (8.4-10.2); CREATININE SERUM 4.8 mg/dL (0.6-1.4); GLOM FILT RATE Estimated 9.3 mL/min (>60); POTASSIUM 4.2 mmol/L (3.5-5.1); PROTEIN TOTAL SERUM 6.9 g/dL (6.0-8.3)
[2017-06-24 09:06] LABS: BASOPHIL% 0.5 % (0-2.5); EOSINOPHIL# 0.1 X10e3 (0-0.7); EOSINOPHIL% 1.3 % (0.0-7.0); HEMATOCRIT 24.5 % (35.0-45.0); HEMOGLOBIN 8.6 gm/dL (12.0-16.0); LYMPHOCYTE# 0.9 X10e3 (1.0-3.5); LYMPHOCYTE% 15.4 % (17.0-45.0); MEAN CELL VOLUME 103.8 FL (83-96); MEAN CORPUSCULAR HEMOGLOBIN 36.3 PG (28-34); MEAN PLATELET VOLUME 6.8 FL (6.5-11.5); MONOCYTE# 0.6 X10e3 (0-1.0); MONOCYTE% 9.9 % (3.0-12.0); NEUTROPHIL# 4.3 X10e3 (1.5-7.1); NEUTROPHIL% 72.9 % (40-75); PLATELET COUNT 120 X10e3 (140-420); RED BLOOD COUNT 2.36 X10e (3.90-5.30); RED CELL DISTRIBUTION WIDTH 17.6 % (11.0-15.5); WHITE BLOOD COUNT 5.9 X10e3 (4.0-10.5)
[2017-06-24 09:07] LABS: DIFF IND NO
[2017-06-24 10:02] LABS: PROTHROMBIN TIME (PATIENT) 10.4 SECONDS (10.0-11.7)
[2017-06-25 04:03] LABS: HEMATOCRIT 26.5 % (35.0-45.0); HEMOGLOBIN 8.8 gm/dL (12.0-16.0); MEAN CELL VOLUME 105.9 FL (83-96); MEAN CORPUSCULAR HEMOGLOBIN 35.1 PG (28-34); MEAN CORPUSCULAR HGB CONC 33.2 g/dL (30-36); MEAN PLATELET VOLUME 7.1 FL (6.5-11.5); RED BLOOD COUNT 2.51 X10e (3.90-5.30); RED CELL DISTRIBUTION WIDTH 18.8 % (11.0-15.5); WHITE BLOOD COUNT 7.2 X10e3 (4.0-10.5)
[2017-06-25 04:33] LABS: BUN/CREATININE RATIO 4.46; CALCIUM SERUM 8.4 mg/dL (8.4-10.2); CREATININE SERUM 4.7 mg/dL (0.6-1.4); GLOM FILT RATE Estimated 9.6 mL/min (>60); POTASSIUM 5.3 mmol/L (3.5-5.1)
[2017-06-26 04:02] LABS: BUN/CREATININE RATIO 5.14; CALCIUM SERUM 8.3 mg/dL (8.4-10.2); CREATININE SERUM 6.8 mg/dL (0.6-1.4); GLOM FILT RATE Estimated 6.1 mL/min (>60); POTASSIUM 5.3 mmol/L (3.5-5.1)
[2017-06-26 04:15] LABS: HEMATOCRIT 23.8 % (35.0-45.0); HEMOGLOBIN 8.1 gm/dL (12.0-16.0); MEAN CELL VOLUME 105.8 FL (83-96); MEAN CORPUSCULAR HEMOGLOBIN 35.8 PG (28-34); MEAN CORPUSCULAR HGB CONC 33.8 g/dL (30-36); MEAN PLATELET VOLUME 6.9 FL (6.5-11.5); RED BLOOD COUNT 2.25 X10e (3.90-5.30); RED CELL DISTRIBUTION WIDTH 19.7 % (11.0-15.5); WHITE BLOOD COUNT 6.7 X10e3 (4.0-10.5)
[2017-06-27 03:21] LABS: BASOPHIL% 0.4 % (0-2.5); EOSINOPHIL# 0.1 X10e3 (0-0.7); EOSINOPHIL% 1.9 % (0.0-7.0); HEMATOCRIT 22.7 % (35.0-45.0); HEMOGLOBIN 7.8 gm/dL (12.0-16.0); LYMPHOCYTE# 0.9 X10e3 (1.0-3.5); LYMPHOCYTE% 18.5 % (17.0-45.0); MEAN CELL VOLUME 104.3 FL (83-96); MEAN CORPUSCULAR HEMOGLOBIN 35.9 PG (28-34); MEAN CORPUSCULAR HGB CONC 34.4 g/dL (30-36); MEAN PLATELET VOLUME 7.3 FL (6.5-11.5); MONOCYTE# 0.6 X10e3 (0-1.0); MONOCYTE% 11.4 % (3.0-12.0); NEUTROPHIL# 3.5 X10e3 (1.5-7.1); NEUTROPHIL% 67.8 % (40-75); PLATELET COUNT 128 X10e3 (140-420); RED BLOOD COUNT 2.18 X10e (3.90-5.30); RED CELL DISTRIBUTION WIDTH 18.8 % (11.0-15.5); WHITE BLOOD COUNT 5.1 X10e3 (4.0-10.5)
[2017-06-27 03:35] LABS: DIFF IND YES
[2017-06-27 03:47] LABS: BUN/CREATININE RATIO 4.75; CALCIUM SERUM 8.2 mg/dL (8.4-10.2); GLOM FILT RATE Estimated 11.6 mL/min (>60); POTASSIUM 3.7 mmol/L (3.5-5.1)
[2017-06-27 04:11] LABS: NUCLEATED RED BLOOD CELL 2 /100 ([, 0]); PLATELET ESTIMATE NORMAL (NORMAL)
[2017-06-27 04:12] LABS: ANISOCYTOSIS MOD; HYPOCHROMIA SL; POIKILOCYTOSIS MOD; POLYCHROMASIA MOD
[2017-06-28 04:22] LABS: BASOPHIL% 0.7 % (0-2.5); DIFF IND NO; EOSINOPHIL# 0.1 X10e3 (0-0.7); HEMATOCRIT 24.1 % (35.0-45.0); HEMOGLOBIN 8.3 gm/dL (12.0-16.0); LYMPHOCYTE# 1.1 X10e3 (1.0-3.5); LYMPHOCYTE% 22.3 % (17.0-45.0); MEAN CELL VOLUME 101.5 FL (83-96); MEAN CORPUSCULAR HEMOGLOBIN 34.9 PG (28-34); MEAN CORPUSCULAR HGB CONC 34.3 g/dL (30-36); MEAN PLATELET VOLUME 7.1 FL (6.5-11.5); MONOCYTE# 0.5 X10e3 (0-1.0); MONOCYTE% 10.8 % (3.0-12.0); NEUTROPHIL# 3.2 X10e3 (1.5-7.1); NEUTROPHIL% 64.2 % (40-75); PLATELET COUNT 135 X10e3 (140-420); RED BLOOD COUNT 2.37 X10e (3.90-5.30); RED CELL DISTRIBUTION WIDTH 19.2 % (11.0-15.5); WHITE BLOOD COUNT 5.1 X10e3 (4.0-10.5)
== END 2017-06-28 21:32 | DRG 492 ==
LOC: CED 19:18 → CEDOF 21:50 → C2A 21:50 → CED 22:01 → CEDOF 22:01 → C2A 22:01 → CEDOF 06-22 00:31 → C2A 06-22 00:31 → C4B 06-24 16:32
PROVIDERS: Emergency Medicine; Hospitalist; Orthopaedic Surgery; Physician Assistant Medical; Specialist
PROC: 5A1D60Z (ICD-10-PCS; principal; 2017-06-22)
PROC: 30233N1 Transfusion of Nonautologous Red Blood Cells into Peripheral Vein, Percutaneous Approach (ICD-10-PCS; 2017-06-22)
PROC: 0PSF06Z Reposition Right Humeral Shaft with Intramedullary Internal Fixation Device, Open Approach (ICD-10-PCS; 2017-06-24)
DX: S42.301A Unspecified fracture of shaft of humerus, right arm, initial encounter for closed fracture (principal); N18.6 End stage renal disease; I42.8 Other cardiomyopathies; I12.0 Hypertensive chronic kidney disease with stage 5 chronic kidney disease or end stage renal disease; E66.01 Morbid (severe) obesity due to excess calories; E11.9 Type 2 diabetes mellitus without complications; D64.9 Anemia, unspecified; E78.5 Hyperlipidemia, unspecified; Z86.711 Personal history of pulmonary embolism; M06.9 Rheumatoid arthritis, unspecified; Z90.49 Acquired absence of other specified parts of digestive tract; G40.909 Epilepsy, unspecified, not intractable, without status epilepticus; I25.10 Atherosclerotic heart disease of native coronary artery without angina pectoris; Z95.5 Presence of coronary angioplasty implant and graft; I25.2 Old myocardial infarction; J44.9 Chronic obstructive pulmonary disease, unspecified; G47.33 Obstructive sleep apnea (adult) (pediatric); Z91.15 Patient's noncompliance with renal dialysis; W01.0XXA Fall on same level from slipping, tripping and stumbling without subsequent striking against object, initial encounter; Y93.9 Activity, unspecified; Y92.9 Unspecified place or not applicable; Y92.018 Other place in single-family (private) house as the place of occurrence of the external cause; Z68.34 Body mass index [BMI] 34.0-34.9, adult
CPT/HCPCS: 36415; 70450; 72125; 73030; 73060; 73562; 76000; 80048; 80053; 82947; 85025; 85027; 85610; 86850; 86900; 86901; 86923; 90715; 93005; 94010; 94640; 94760; 97110; 97116; 97161; 97530; 99285; C1713; C9113; C9254; G8978-GP; G8979-GP; J0330; J0690; J1650; J1815; J1940; J1953; J2250; J2270; J2405; J3010; P9016; Q4081